=== PATIENT | female | born 1990 | race African-American/Black ===

== ENCOUNTER 2024-11-29 05:34 | Emergency (ER) | payer SELFPAY ==
--- NOTE | ~2024-11-29 | XR_ITS ---
Portable chest x-ray Comparison: None Clinical History: Asthma Findings: Lungs are clear, without focal consolidation or pleural effusion. Cardiomediastinal silho uette is unremarkable. Bones and soft tissues are unremarkable. Impression: Normal chest. Reviewed, dictated and finalized at location M. Impression: Normal chest.
[2024-11-29 05:40] VITALS: BP 135/77; PULSE 98; RESP 17; TEMP 36.7; O2SAT 93
--- NOTE | 2024-11-29 05:48 | ED_ITS ---
HPI - Asthma General Chief Complaint: Asthma Stated Complaint: short of breath Time Seen by Provider: 11/29/24 05:44 History of Present Illness HPI Narrative: 34-year-old female presenting to the ER for asthma exacerbation. Patient states her difficulty breathing started 1 day ago. She ran out of her albuterol inhaler and her nebulizer solutions. She recently moved here from [place] and was not able to establish with a PCP yet. Was prescribed steroids about 1 month ago for similar. Audible wheezing inspiratory and expiratory on arrival. Awake alert oriented. Brought back in the room 1. For treatment and evaluation. No chest pain, nausea, vomiting, fever, chills. No recent antibiotics. No recent sick contacts. Patient states this feels very similar to asthma and not her worst exacerbation. Related Data Allergies Allergy/AdvReac Type Severity Reaction Status Date / Time No Known Allergies Allergy Verified 11/29/24 05:35 Review of Systems 2 Review of Systems: As reviewed above Exam 2 Narrative: GENERAL: Uncomfortable appearing with audible wheezing. HEAD: [Normocephalic, atraumatic.] EYES: [PERRLA and EOMI.] ENT: Nares clear, no rhinorrhea or epistaxis. Mucous membranes moist. NECK: Supple. CHEST: Inspiratory and expiratory wheezing with prolonged expiratory phase. No retractions or tachypnea. Answering questions with some conversational dyspnea. HEART: [Regular rate and rhythm]. No murmur heard. [Normal peripheral pulses.] ABDOMEN: [Soft, nondistended], [nontender], [No rigidity or guarding] EXTREMITIES: Normal range of motion. [No edema.] SKIN: Warm, dry, no rash. NEURO: [No focal deficits]. Alert and oriented [x3.] PSYCH: [Normal mood and affect.] Course Vital Signs Vital signs: Vital Signs Temperature 36.7 C 11/29/24 05:40 Pulse Rate 98 11/29/24 05:40 Respiratory Rate 17 11/29/24 05:40 Blood Pressure 135/77 11/29/24 05:40 Pulse Oximetry 93 11/29/24 05:40 Oxygen Delivery Room Air 11/29/24 05:40 Temperature 36.7 C 11/29/24 05:40 Pulse Rate 98 11/29/24 05:40 Respiratory Rate 17 11/29/24 05:40 Blood Pressure 135/77 11/29/24 05:40 Pulse Oximetry 93 11/29/24 06:18 Oxygen Delivery Room Air 11/29/24 06:18 MDM - Asthma MDM Narrative Medical decision making narrative: 34-year-old female with a past medical history including intermittent asthma. She is well controlled on her maintenance inhalers including albuterol but she ran out of this and has not had any refills of her nebulizer solutions as she just moved here from [place]. No recent sick contacts or illnesses. No nausea or vomiting or chest pain/pressure. She does have audible inspiratory and expiratory wheezing throughout all lung anderson but saturating well on room air. She is awake and answering questions although dyspneic and uncomfortable appearing. Suspicion presently is for severe asthma exacerbation versus bronchospasm versus less likely pneumonia pneumothorax or other intrathoracic process. IV was established and she was given continuous Atrovent and albuterol with nebulizer through facemask. RT called to bedside to assist with this. Patient was given 125 mg of Solu-Medrol and 2 g of magnesium sulfate with a lactated Ringer bolus. Basic studies were obtained as well as a chest x-ray. Patient was evaluated after 1 hour of nebulization. She was doing much better at this time, breathing more comfortably, interactive and not in any distress. She still had some scattered wheezing but good aeration with normal vital signs on repeat examination. She felt comfortable going home at this time and was given prescriptions for refills of her albuterol and nebulization solutions as well as a sore course of steroids. She was given a primary care provider she can contact in this tablets care with. Patient given return precautions and safe for discharge at this time. Medical Records Attestation: I reviewed the patient's medical records. Lab Data Attestation: I reviewed the patient's lab results. 11/29/24 05:56 11/29/24 05:56 Labs: Lab Results 11/29/24 Range/Units 05:56 WBC 7.0 (4.5-10.0) K/mm3 RBC 4.42 (4.2-5.4) M/mm3 Hgb 14.1 (12.0-15.0) g/dL Hct 43.5 (37.0-47.0) % MCV 98.4 (80-100) fl MCH 31.9 (26-34) pg MCHC 32.4 (32-36) g/dl RDW 11.2 L (11.5-14.5) % Plt Count 274 (150-375) k/mm3 MPV 9.3 (7.4-10.4) fl Immature Gran % (Auto) 0.1 (0-0.5) % Neut % (Auto) 41.1 L (45.5-73.1) % Lymph % (Auto) 39.2 (18.3-44.2) % [place] % (Auto) 7.3 (2.6-8.5) % Eos % (Auto) 11.4 H (0-4.4) % Baso % (Auto) 0.9 (0.2-1.2) % Lymph # (Auto) 2.74 (0.9-3.2) K/mm3 [place] # (Auto) 0.5 (0.1-0.6) K/mm3 Eos # (Auto) 0.8 H (0-0.3) K/mm3 Baso # (Auto) 0.1 (0.0-0.1) K/mm3 Abs Immat Gran (auto) 0.01 (0.00-0.031) K/mm3 Absolute Neuts (auto) 2.9 (1.3-6.7) K/mm3 Absolute Nucleated RBC 0.000 (0.0-0.012) K/mm3 Nucleated RBC % 0.0 (0.0-0.2) % Sodium 139 (137-145) mmol/L Potassium 3.8 (3.4-5.0) mmol/L Chloride 104 (98-107) mmol/L Carbon Dioxide 28 (22-30) mmol/L Anion Gap 7 (4-12) mmol/L BUN 8 (7-17) mg/dL Creatinine 0.92 (0.7-1.0) mg/dL Estim Creat Clear Calc 83 ml/min Estimated GFR > 60 (59 - ) Glucose 89 (65-110) mg/dL Calcium 8.8 (8.4-10.2) mg/dL Total Bilirubin 0.3 (0.2-1.3) mg/dL AST 22 (14-36) U/L ALT 16 (6-35) U/L Alkaline Phosphatase 49 (38-126) U/L Total Protein 7.0 (6.3-8.2) g/dL Albumin 4.0 (3.5-5.1) g/dL Imaging Data Attestation: I personally reviewed and interpreted this imaging study as follows: My impression: Impressions Chest X-Ray 11/29/24 06:13 Impression: Normal chest. Discharge Plan Discharge Clinical Impression: Asthma with acute exacerbation Patient Disposition: Home, Self-Care Condition: Stable Instructions: Antibiotic Form, Asthma (ED), Wheezing (ED) Additional Instructions: Your laboratory studies and chest x-ray are normal. You had an asthma exacerbation which we have treated with nebulized medicine and steroids. We have sent you refills of your nebulization solutions and albuterol inhaler as well as a short course of steroids. Follow-up with a primary care provider. Return with any emergent concerns or recurrent severe difficulty in breathing. Patient Language: Jordanian Prescriptions: New albuterol sulfate 2.5 mg /3 mL (0.083 %) solution for nebulization 2.5 mg inhalation Q4H PRN (Reason: shortness of breath or wheezing) Qty: 90 0RF ipratropium bromide 0.02 % solution 2.5 ml inhalation Q6H PRN (Reason: shortness of breath or wheezing) Qty: 75 0RF prednisone 50 mg tablet 50 mg PO DAILY 5 Days Qty: 5 0RF albuterol sulfate 90 mcg/actuation HFA aerosol inhaler 2 puff inhalation QID PRN (Reason: shortness of breath or wheezing) Qty: 8.5 0RF Follow-up/Referrals: Caleb Sears MD [Physician] - 3 Days (Establish PCP, follow up ER visit) PHYSICIAN,BINGO MANAGER [Primary Care Provider] - Time of Disposition: 06:40
[2024-11-29] MEDS: MAGNESIUM SULF 2 GM/WATER 50ML 2 GM/50 ML BAG IVPB (05:53)
[2024-11-29] MEDS: LACTATED RINGERS 1,000 ML 999 ML IV CONT (05:53)
[2024-11-29] MEDS: methylPREDNISolone SOD SUCC 125 MG VIAL IV PUSH (05:53)
[2024-11-29] MEDS: IPRATROPIUM BR 0.02% INH SOLN 0.5 MG/2.5 ML VIAL 1 MG INHALATION (05:57)
[2024-11-29] MEDS: ALBUTEROL SULFATE NEB 2.5 MG/3 ML INH 10 MG INHALATION (05:58)
[2024-11-29 06:02] LABS: Basophils Absolute Auto 0.1 K/mm3 (0.0-0.1); Basophils Percent Auto 0.9 % (0.2-1.2); Eosinophils Absolute Auto 0.8 K/mm3 (0-0.3); Eosinophils Percent Auto 11.4 % (0-4.4); Hematocrit 43.5 % (37.0-47.0); Hemoglobin 14.1 g/dL (12.0-15.0); Immature Granulocyte Absolute 0.01 K/mm3 (0.00-0.031); Immature Granulocyte Percent A 0.1 % (0-0.5); Lymphocytes Absolute Auto 2.74 K/mm3 (0.9-3.2); Lymphocytes Percent Auto 39.2 % (18.3-44.2); Mean Corpuscular HGB Conc 32.4 g/dl (32-36); Mean Corpuscular Hemoglobin 31.9 pg (26-34); Mean Corpuscular Volume 98.4 fl (80-100); Mean Platelet Volume 9.3 fl (7.4-10.4); Monocytes Absolute Auto 0.5 K/mm3 (0.1-0.6); Monocytes Percent Auto 7.3 % (2.6-8.5); Neutrophils Absolute Auto 2.9 K/mm3 (1.3-6.7); Neutrophils Percent Auto 41.1 % (45.5-73.1); Platelet Count Result 274 k/mm3 (150-375); Red Blood Count 4.42 M/mm3 (4.2-5.4); Red Cell Distribution Width 11.2 % (11.5-14.5)
[2024-11-29 06:13] LABS: Alanine Aminotransferase 16 U/L (6-35); Alkaline Phosphatase 49 U/L (38-126); Anion Gap 7 mmol/L (4-12); Aspartate Amino Transferase 22 U/L (14-36); Bilirubin,Total 0.3 mg/dL (0.2-1.3); Blood Urea Nitrogen 8 mg/dL (7-17); Calcium 8.8 mg/dL (8.4-10.2); Carbon Dioxide 28 mmol/L (22-30); Chloride 104 mmol/L (98-107); Estimated CRCL calculation 83 ml/min; Estimated Glomerular Filt Rate > 60; Glucose 89 mg/dL (65-110); Potassium 3.8 mmol/L (3.4-5.0); Sodium 139 mmol/L (137-145)
[2024-11-29 06:18] VITALS: O2SAT 93
[2024-11-29 06:49] VITALS: BP 132/78; PULSE 88; RESP 17; O2SAT 97
[2024-11-29 07:11] VITALS: BP 158/93; PULSE 85; RESP 16; TEMP 36.5; O2SAT 100
== END 2024-11-29 07:12 | disposition home or self-care (01) ==
PROVIDERS: Emergency Provider Student in an Organized Health Care Education/Training Program
DX: J45.901 Unspecified asthma with (acute) exacerbation (principal)
CPT/HCPCS: 36415; 71045; 80053; 85025; 96361; 96374; 96375; 99284; J2919; J3475; J7120

== ENCOUNTER 2025-01-28 17:31 | Emergency (ER) | payer MEDICAID, SELFPAY ==
[2025-01-28 17:30] VITALS: BP 132/75; PULSE 102; RESP 18; TEMP 36.9; O2SAT 100
[2025-01-28 18:00] VITALS: BP 118/72; PULSE 122; RESP 18; O2SAT 100
[2025-01-28] MEDS: IPRATROPIUM BR 0.02% INH SOLN 0.5 MG/2.5 ML VIAL 1.5 MG INHALATION (18:00)
[2025-01-28] MEDS: ALBUTEROL SULFATE NEB 2.5 MG/3 ML INH 15 MG INHALATION (18:00)
[2025-01-28] MEDS: predniSONE 20 MG TABLET 60 MG PO (18:06)
[2025-01-28 18:08] VITALS: PULSE 100; RESP 16
[2025-01-28 19:00] VITALS: BP 154/82; PULSE 112; RESP 16; O2SAT 100
--- NOTE | 2025-01-28 19:32 | ED_ITS ---
HPI - Asthma General Chief Complaint: Asthma Stated Complaint: SOB Time Seen by Provider: 01/28/25 17:35 History of Present Illness HPI Narrative: Patient is a 34-year-old female who presents ER with shortness breath. History of asthma. Has been trying home nebs but is not improving. She is out of her inhaler. No fevers or chills or sweats. No productive cough. Starting to feel improvement with nebulizer from EMS. Related Data Allergies Allergy/AdvReac Type Severity Reaction Status Date / Time No Known Allergies Allergy Verified 01/28/25 17:36 Review of Systems Review of Systems: All systems reviewed & are unremarkable except as noted in HPI and below Constitutional: Constitutional: Reports no additional constitutional complaints ENT: Reports system reviewed and no additional complaints, except as documented Cardiovascular: Cardiovascular: Reports no additional cardiovascular complaints Respiratory: Respiratory: Reports no additional respiratory complaints PMFSH Past Medical History Medical History (Updated 01/28/25 @ 19:34 by Farhat Foss MD) Asthma Surgical History Surgical History (Updated 01/28/25 @ 19:33 by Farhat Foss MD) No pertinent past surgical history Exam Narrative: GENERAL: Well-appearing, well-nourished, and in no acute distress. HEAD: Normocephalic, atraumatic. ENT: Mucous membranes moist. CHEST: Expiratory wheezing in frequent coughing. HEART: Tachycardic and regular. Normal peripheral pulses. ABDOMEN: Soft, nontender, nondistended. EXTREMITIES: Normal range of motion. No edema. SKIN: Warm, dry, no rash. NEURO: Alert and oriented x3. PSYCH: Normal mood and affect. Course Course Emergency Course: Patient is still wheezing after hour long nebulizer treatment. She reports she feels markedly better and is ready to go home. She has been given prednisone 60 mg. We have discussed return precautions and she has verbalized understanding. Vital Signs Vital signs: Vital Signs Temperature 98.5 F 01/28/25 17:30 Pulse Rate 102 H 01/28/25 17:30 Respiratory Rate 18 01/28/25 17:30 Blood Pressure 132/75 01/28/25 17:30 Pulse Oximetry 100 01/28/25 17:30 Oxygen Delivery Room Air 01/28/25 17:30 Temperature 98.5 F 01/28/25 17:30 Pulse Rate 112 H 01/28/25 19:00 Respiratory Rate 16 01/28/25 19:00 Blood Pressure 154/82 H 01/28/25 19:00 Pulse Oximetry 100 01/28/25 19:00 Oxygen Delivery Room Air 01/28/25 17:30 Discharge Plan Discharge Clinical Impression: Asthma with acute exacerbation Patient Disposition: Home Condition: Stable Instructions: Asthma (ED) Additional Instructions: Please return to the emergency department if you develop severe and persistent chest pain, difficulty breathing, dizziness, leg swelling or if you are coughing up blood as these can be signs of a medical emergency. Please call your doctor for a follow up appointment to determine the need for further testing. Patient Language: Sinhala Prescriptions: New ipratropium-albuterol 0.5 mg-3 mg(2.5 mg base)/3 mL solution for nebulization 3 ml inhalation QID PRN (Reason: shortness of breath) Qty: 90 0RF prednisone 50 mg tablet 50 mg PO DAILY Qty: 7 0RF albuterol sulfate 90 mcg/actuation HFA aerosol inhaler 2 puff inhalation QID PRN (Reason: shortness of breath or wheezing) Qty: 8.5 0RF No Action albuterol sulfate 2.5 mg /3 mL (0.083 %) solution for nebulization 2.5 mg inhalation Q4H PRN (Reason: shortness of breath or wheezing) Qty: 90 0RF ipratropium bromide 0.02 % solution 2.5 ml inhalation Q6H PRN (Reason: shortness of breath or wheezing) Qty: 75 0RF prednisone 50 mg tablet 50 mg PO DAILY 5 Days Qty: 5 0RF albuterol sulfate 90 mcg/actuation HFA aerosol inhaler 2 puff inhalation QID PRN (Reason: shortness of breath or wheezing) Qty: 8.5 0RF Follow-up/Referrals: PHYSICIAN NOT ON STAFF,NONSTAFF [Primary Care Provider] - Trung Ricketts MD [Physician] - 1 Week
[2025-01-28 19:53] VITALS: PULSE 104
[2025-01-28 19:54] VITALS: BP 137/80; PULSE 104; RESP 14; O2SAT 100
== END 2025-01-28 19:54 | disposition home or self-care (01) ==
PROVIDERS: Emergency Provider Emergency Medicine
DX: J45.901 Unspecified asthma with (acute) exacerbation (principal)
CPT/HCPCS: 94640; 99283; J7512